=== PATIENT | female | born 1945 | race Caucasian/White ===

== ENCOUNTER 2022-08-06 10:55 | Inpatient (IN) | payer OTHER ==
[~2022-08-06] VITALS: Ht 162.6 cm; Wt 49.4 kg
[2022-08-06 11:05] VITALS: BP_SYST 123
[2022-08-06 12:09] LABS: ANION GAP 8 (5-15); BASOPHILS % (AUTO) 0.5 % (0.0-2.0); CALCIUM 9.2 mg/dL (8.4-11.0); CHLORIDE 106 mmol/L (98-107); CREATININE 1.63 mg/dL (0.55-1.30); EOSINOPHILS # (AUTO) 0.2 K/uL (0.0-0.4); EOSINOPHILS % (AUTO) 2.9 % (0.0-4.0); GLUCOSE 116 mg/dL (70-99); HEMATOCRIT 33.5 % (36-48); HEMOGLOBIN 11.1 g/dL (12.0-16.0); LYMPHOCYTES % (AUTO) 27.9 % (20.5-51.5); MEAN CORPUSCULAR HEMOGLOBIN 28 pg (27-31); MEAN CORPUSCULAR HGB CONC 33 % (32-36); MEAN CORPUSCULAR VOLUME 84 fL (79.0-98.0); MONOCYTES # (AUTO) 0.4 K/uL (0.0-1.0); MONOCYTES % (AUTO) 5.8 % (1.7-9.3); NEUTROPHILS # (AUTO) 4.6 K/uL (1.8-7.7); NEUTROPHILS % (AUTO) 62.9 % (40.0-70.0); PLATELET COUNT (AUTO) 278 K/uL (130-430); PROTHROMBIN TIME 9.9 SECS (9.5-12.5); RED BLOOD CELL COUNT(AUTO) 3.99 MIL/uL (4.2-6.2); RED CELL DISTRIBUTION WIDTH 15.8 % (9.0-15.0); UREA NITROGEN, BLOOD 42 mg/dL (8-21); WHITE BLOOD COUNT (AUTO) 7.3 K/uL (4.8-10.8)
[2022-08-06] MEDS ORDERED: NACL 0.9% 1,500 ML IV ONE (12:15)
[2022-08-06] MEDS ORDERED: cefTRIAXone 1 GM in LIDOCAINE 1%, 20 ML MDV 2.1 ML IM ONE (12:15)
[2022-08-06] MEDS ORDERED: cefTRIAXone 1 GM in D5W 50 ML IV ONE (12:15)
[2022-08-06 12:21] LABS: ALANINE AMINOTRANSFERASE 41 U/L (12-78); ALBUMIN 3.1 g/dL (3.4-4.8); ASPARTATE AMINOTRANSFERASE 17 U/L (10-37); TOTAL BILIRUBIN 0.3 mg/dL (0.0-1.0)
[2022-08-06] MEDS ORDERED: cefTRIAXone 1 GM VIAL ONE (13:00)
[2022-08-06 13:08] LABS: ACETAMINOPHEN < 1 ug/mL (1-30); ALCOHOL, BLOOD < 3 mg/dL (<10)
[2022-08-06 14:58] LABS: BILIRUBIN,URINE NEGATIVE (NEGATIVE); BLOOD, URINE NEGATIVE (NEGATIVE); COLOR,URINE YELLOW (YELLOW); GLUCOSE,URINE NEGATIVE (NEGATIVE); KETONES,URINE NEGATIVE (NEGATIVE); LEUKOCYTE ESTERASE ,URINE NEGATIVE (NEGATIVE); NITRITE, URINE NEGATIVE (NEGATIVE); PROTEIN URINE 2+ (NEGATIVE); UROBILINOGEN,URINE 0.2 (0.2-1.0)
[2022-08-06 15:01] LABS: CLARITY/URINE SLIGHTLY HAZY (CLEAR)
[2022-08-06 15:14] LABS: RBC,URINE NONE SEEN /HPF (0-3)
[2022-08-06 15:15] LABS: BACTERIA,URINE MODERATE /HPF (None Seen); HYALINE CASTS, URINE 0-10 /LPF (None Seen); MUCUS,URINE None Seen /LPF (None Seen)
[2022-08-06 15:20] LABS: BARBITURATE, URINE NEGATIVE (NEG <=200); BENZODIAZEPINE, URINE NEGATIVE (NEG <=150); CANNABINOID, URINE NEGATIVE (NEG <=50); COCAINE, URINE NEGATIVE (NEG <=150); METHAMPHETAMINES SCREEN,URINE NEGATIVE (NEG <=500); OPIATE, URINE NEGATIVE (NEG <=100); PHENCYCLIDINE SCREEN,URINE NEGATIVE (NEG <=25); UR TRICYCLIC ANTIDEPRESSANTS NEGATIVE (NEG <=300); URINE AMPHETAMINE NEGATIVE (NEG <=500); URINE METHADONE NEGATIVE (NEG <=200); URINE OXYCODONE SCREEN NEGATIVE (NEG <=100); URINE PROPOXYPHENE SCREEN NEGATIVE (NEG <=300)
[2022-08-06] MEDS ORDERED: HYDR-4039 PO (16:56)
[2022-08-06] MEDS ORDERED: METO25TA6 PO (16:56)
[2022-08-06] MEDS ORDERED: LIP10 PO (16:56)
[2022-08-06] MEDS ORDERED: LOSA50TA3 PO (16:56)
[2022-08-06] MEDS ORDERED: LEVO25TA7 PO (16:56)
[2022-08-06] MEDS ORDERED: DONE10TA44 PO (16:56)
[2022-08-06] MEDS ORDERED: MEMA10TA PO (16:56)
[2022-08-06] MEDS ORDERED: FINE10TA PO (16:56)
[2022-08-06] MEDS ORDERED: CYAN100010 PO (16:56)
[2022-08-06] MEDS ORDERED: INSU100V38 SQ (16:56)
[2022-08-06] MEDS ORDERED: INSNLG7030 SUBCUT (16:56)
[2022-08-06] MEDS ORDERED: cefTRIAXone 1 GM IVPB PREMIX 50 ML IV ONE (17:30)
[2022-08-06] MEDS ORDERED: HYDROcodone/ACETAMIN 10-325 MG TAB PO PRN (19:45)
[2022-08-06] MEDS ORDERED: ONDANSETRON HCL 4 MG/2 ML VIAL IVP PRN (19:45)
[2022-08-06] MEDS ORDERED: ACETAMINOPHEN 325 MG TABLET PO PRN ×2 (19:45→20:15)
[2022-08-06] MEDS ORDERED: HYDROcodone/ACETAMIN 5-325 MG TAB (NORCO/ VICODIN) PO PRN (19:45)
[2022-08-06] MEDS ORDERED: LORazepam 2 MG/ML VIAL IVP PRN (19:45)
[2022-08-06] MEDS ORDERED: NALOXONE HCL 0.4 MG/ML AMP (NARCAN) IVP PRN ×2 (19:45)
[2022-08-06] MEDS: INSULIN GLARGINE 100 UNITS/ML, 10 ML VIAL SUBCUT SCH (22:58)
[2022-08-07] MEDS: hydrALAZINE HCL 25 MG TABLET PO SCH ×5 (00:42→20:42)
[2022-08-07] MEDS: NORMAL SALINE 5 ML DISP.SYRIN IVF SCH ×4 (00:43→22:00)
[2022-08-07] MEDS: ATORVASTATIN 10 MG TABLET PO SCH ×2 (00:43→20:43)
[2022-08-07] MEDS: MEMANTINE HCL 5 MG TABLET PO SCH ×3 (00:43→20:43)
[2022-08-07] MEDS: DONEPEZIL HCL 5 MG TABLET (ARICEPT) PO SCH ×2 (00:43→20:41)
[2022-08-07] MEDS ORDERED: INSULIN NPH/REGULAR 70-30, 100 UNITS/ML, 3 ML VIAL ONE ×2 (06:16→12:22)
[2022-08-07] MEDS: INSULIN NPH/REGULAR 70-30, 100 UNITS/ML, 3 ML VIAL SUBCUT SCH ×3 (06:22→16:37)
[2022-08-07 06:54] LABS: CALCIUM 8.6 mg/dL (8.4-11.0); CHLORIDE 109 mmol/L (98-107); GLUCOSE 84 mg/dL (70-99); UREA NITROGEN, BLOOD 38 mg/dL (8-21)
[2022-08-07] MEDS ORDERED: INSULIN Aspart Prota/Aspar MIX 70-30, 100 UNITS/ML, 10 ML VIAL SUBCUT SCH (07:00)
[2022-08-07 07:04] LABS: BASOPHILS % (AUTO) 0.3 % (0.0-2.0); EOSINOPHILS # (AUTO) 0.1 K/uL (0.0-0.4); EOSINOPHILS % (AUTO) 1.7 % (0.0-4.0); HEMATOCRIT 31.1 % (36-48); HEMOGLOBIN 10.3 g/dL (12.0-16.0); LYMPHOCYTES # (AUTO) 2.9 K/uL (1.0-5.5); LYMPHOCYTES % (AUTO) 34.5 % (20.5-51.5); MEAN CORPUSCULAR HEMOGLOBIN 28 pg (27-31); MEAN CORPUSCULAR HGB CONC 33 % (32-36); MEAN CORPUSCULAR VOLUME 84 fL (79.0-98.0); MONOCYTES # (AUTO) 0.5 K/uL (0.0-1.0); MONOCYTES % (AUTO) 5.4 % (1.7-9.3); NEUTROPHILS # (AUTO) 4.9 K/uL (1.8-7.7); NEUTROPHILS % (AUTO) 58.1 % (40.0-70.0); PLATELET COUNT (AUTO) 272 K/uL (130-430); RED BLOOD CELL COUNT(AUTO) 3.71 MIL/uL (4.2-6.2); WHITE BLOOD COUNT (AUTO) 8.4 K/uL (4.8-10.8)
[2022-08-07 07:13] LABS: PHOSPHORUS 3.6 mg/dL (2.7-4.5)
[2022-08-07 07:43] LABS: ANION GAP 11 (5-15)
[2022-08-07] MEDS: SPIRONOLACTONE 25 MG TABLET (ALDACTONE) PO SCH (09:03)
[2022-08-07] MEDS: LEVOTHYROXINE SODIUM 0.025 MG TABLET PO SCH (09:03)
[2022-08-07] MEDS: LOSARTAN POTASSIUM 50 MG TABLET (COZAAR) PO SCH (09:06)
[2022-08-07] MEDS: METOPROLOL TARTRATE 25 MG TABLET PO SCH (09:07)
[2022-08-07] MEDS: CYANOCOBALAMIN (VITAMIN B-12) 1,000 MCG TABLET PO SCH (09:08)
[2022-08-07] MEDS ORDERED: KCL 40 mEq in 100 mL (PREMIX) 100 ML IV ONE (09:15)
[2022-08-07] MEDS: KCL 20 mEq in 100 mL (PREMIX) 100 ML IV SCH ×2 (09:52→12:23)
[2022-08-07 13:00] VITALS: BP_SYST 136
[2022-08-07 13:32] VITALS: BP_SYST 136
[2022-08-07] MEDS: INSULIN REGULAR, HUMAN 100 UNITS/ML, 3 ML VIAL (humuLIN R) SUBCUT PRN ×2 (16:38→21:01)
[2022-08-07] MEDS ORDERED: cefTRIAXone 1 GM IVPB PREMIX 50 ML IV SCH (17:00)
[2022-08-07 19:10] VITALS: BP_SYST 122
[2022-08-07] MEDS: INSULIN GLARGINE 100 UNITS/ML, 10 ML VIAL SUBCUT SCH (21:01)
[2022-08-08 00:28] VITALS: BP_SYST 137
[2022-08-08 04:00] VITALS: BP_SYST 121
[2022-08-08] MEDS: NORMAL SALINE 5 ML DISP.SYRIN IVF SCH ×3 (06:00→23:13)
[2022-08-08 07:00] LABS: BASOPHILS % (AUTO) 0.6 % (0.0-2.0); EOSINOPHILS # (AUTO) 0.2 K/uL (0.0-0.4); EOSINOPHILS % (AUTO) 2.1 % (0.0-4.0); HEMOGLOBIN 10.1 g/dL (12.0-16.0); LYMPHOCYTES # (AUTO) 2.9 K/uL (1.0-5.5); LYMPHOCYTES % (AUTO) 36.7 % (20.5-51.5); MEAN CORPUSCULAR HEMOGLOBIN 28 pg (27-31); MEAN CORPUSCULAR HGB CONC 33 % (32-36); MEAN CORPUSCULAR VOLUME 84 fL (79.0-98.0); MONOCYTES # (AUTO) 0.5 K/uL (0.0-1.0); NEUTROPHILS # (AUTO) 4.3 K/uL (1.8-7.7); NEUTROPHILS % (AUTO) 54.6 % (40.0-70.0); PLATELET COUNT (AUTO) 274 K/uL (130-430); RED BLOOD CELL COUNT(AUTO) 3.68 MIL/uL (4.2-6.2); RED CELL DISTRIBUTION WIDTH 16.2 % (9.0-15.0); WHITE BLOOD COUNT (AUTO) 7.9 K/uL (4.8-10.8)
[2022-08-08] MEDS: LEVOTHYROXINE SODIUM 0.025 MG TABLET PO SCH (07:00)
[2022-08-08] MEDS: INSULIN NPH/REGULAR 70-30, 100 UNITS/ML, 3 ML VIAL SUBCUT SCH ×3 (07:00→17:00)
[2022-08-08 07:35] LABS: ALANINE AMINOTRANSFERASE 26 U/L (12-78); ALBUMIN 2.6 g/dL (3.4-4.8); ANION GAP 7 (5-15); ASPARTATE AMINOTRANSFERASE 13 U/L (10-37); CALCIUM 8.5 mg/dL (8.4-11.0); CHLORIDE 112 mmol/L (98-107); CREATININE 1.44 mg/dL (0.55-1.30); GLUCOSE 64 mg/dL (70-99); PHOSPHORUS 3.3 mg/dL (2.7-4.5); TOTAL BILIRUBIN 0.2 mg/dL (0.0-1.0); UREA NITROGEN, BLOOD 35 mg/dL (8-21)
[2022-08-08 07:37] LABS: C-REACTIVE PROTEIN QUANT < 0.2 mg/dL (0-0.5)
[2022-08-08] MEDS: SPIRONOLACTONE 25 MG TABLET (ALDACTONE) PO SCH (08:41)
[2022-08-08] MEDS: MEMANTINE HCL 5 MG TABLET PO SCH ×2 (08:41→23:10)
[2022-08-08] MEDS: LOSARTAN POTASSIUM 50 MG TABLET (COZAAR) PO SCH (08:41)
[2022-08-08] MEDS: CYANOCOBALAMIN (VITAMIN B-12) 1,000 MCG TABLET PO SCH (08:41)
[2022-08-08] MEDS: hydrALAZINE HCL 25 MG TABLET PO SCH ×3 (08:42→23:10)
[2022-08-08] MEDS: METOPROLOL TARTRATE 25 MG TABLET PO SCH (08:43)
[2022-08-08] MEDS: D5/0.45 NS 1,000 ML IV SCH ×2 (10:15→23:00)
[2022-08-08 10:32] LABS: ERYTHROCYTE SEDIMENTATION RATE 39 MM/HR (0-20)
[2022-08-08 11:28] VITALS: BP_SYST 126
[2022-08-08] MEDS: INSULIN REGULAR, HUMAN 100 UNITS/ML, 3 ML VIAL (humuLIN R) SUBCUT PRN ×2 (11:52→17:36)
[2022-08-08 15:31] VITALS: BP_SYST 112
[2022-08-08 17:38] VITALS: BP_SYST 124; BP_SYST 128; BP_SYST 130
[2022-08-08] MEDS: DONEPEZIL HCL 5 MG TABLET (ARICEPT) PO SCH (23:09)
[2022-08-08] MEDS: ATORVASTATIN 10 MG TABLET PO SCH (23:09)
[2022-08-08] MEDS: INSULIN GLARGINE 100 UNITS/ML, 10 ML VIAL SUBCUT SCH (23:15)
[2022-08-09] MEDS: D5/0.45 NS 1,000 ML IV SCH ×2 (06:06→20:00)
[2022-08-09] MEDS: NORMAL SALINE 5 ML DISP.SYRIN IVF SCH ×3 (06:06→21:14)
[2022-08-09] MEDS: LEVOTHYROXINE SODIUM 0.025 MG TABLET PO SCH (06:21)
[2022-08-09] MEDS: INSULIN NPH/REGULAR 70-30, 100 UNITS/ML, 3 ML VIAL SUBCUT SCH ×3 (06:25→17:07)
[2022-08-09 08:00] VITALS: BP_SYST 125
[2022-08-09] MEDS: MEMANTINE HCL 5 MG TABLET PO SCH ×2 (08:30→20:24)
[2022-08-09] MEDS: LOSARTAN POTASSIUM 50 MG TABLET (COZAAR) PO SCH (08:30)
[2022-08-09] MEDS: hydrALAZINE HCL 25 MG TABLET PO SCH ×3 (08:31→20:24)
[2022-08-09] MEDS: CYANOCOBALAMIN (VITAMIN B-12) 1,000 MCG TABLET PO SCH (08:31)
[2022-08-09] MEDS: METOPROLOL TARTRATE 25 MG TABLET PO SCH (08:31)
[2022-08-09] MEDS: SPIRONOLACTONE 25 MG TABLET (ALDACTONE) PO SCH (08:32)
[2022-08-09 09:50] LABS: ANION GAP 9 (5-15); CHLORIDE 107 mmol/L (98-107); CREATININE 1.33 mg/dL (0.55-1.30); GLUCOSE 130 mg/dL (70-99); PHOSPHORUS 3.9 mg/dL (2.7-4.5); UREA NITROGEN, BLOOD 31 mg/dL (8-21)
[2022-08-09 09:53] LABS: C-REACTIVE PROTEIN QUANT < 0.2 mg/dL (0-0.5)
[2022-08-09 10:21] LABS: RED BLOOD CELL COUNT(AUTO) 4.07 MIL/uL (4.2-6.2); WHITE BLOOD COUNT (AUTO) 8.8 K/uL (4.8-10.8)
[2022-08-09 10:22] LABS: BASOPHILS % (AUTO) 0.4 % (0.0-2.0); EOSINOPHILS # (AUTO) 0.2 K/uL (0.0-0.4); HEMATOCRIT 34.4 % (36-48); HEMOGLOBIN 11.1 g/dL (12.0-16.0); LYMPHOCYTES # (AUTO) 2.9 K/uL (1.0-5.5); LYMPHOCYTES % (AUTO) 32.8 % (20.5-51.5); MEAN CORPUSCULAR HEMOGLOBIN 27 pg (27-31); MEAN CORPUSCULAR HGB CONC 32 % (32-36); MEAN CORPUSCULAR VOLUME 85 fL (79.0-98.0); MONOCYTES # (AUTO) 0.4 K/uL (0.0-1.0); MONOCYTES % (AUTO) 4.3 % (1.7-9.3); NEUTROPHILS # (AUTO) 5.3 K/uL (1.8-7.7); NEUTROPHILS % (AUTO) 60.5 % (40.0-70.0); PLATELET COUNT (AUTO) 301 K/uL (130-430); RED CELL DISTRIBUTION WIDTH 16.1 % (9.0-15.0)
[2022-08-09 10:57] LABS: ERYTHROCYTE SEDIMENTATION RATE 53 MM/HR (0-20)
[2022-08-09] MEDS ORDERED: ERTA1VIA IJ (11:37)
[2022-08-09 11:44] VITALS: BP_SYST 151
[2022-08-09] MEDS: INSULIN REGULAR, HUMAN 100 UNITS/ML, 3 ML VIAL (humuLIN R) SUBCUT PRN (12:18)
[2022-08-09 15:16] VITALS: BP_SYST 149
[2022-08-09] MEDS: ERTAPENEM SODIUM 0.5 GM in NS 50 ML IV SCH (17:13)
[2022-08-09 20:00] VITALS: BP_SYST 160
[2022-08-09] MEDS: DONEPEZIL HCL 5 MG TABLET (ARICEPT) PO SCH (20:23)
[2022-08-09] MEDS: ATORVASTATIN 10 MG TABLET PO SCH (20:24)
[2022-08-09] MEDS: INSULIN GLARGINE 100 UNITS/ML, 10 ML VIAL SUBCUT SCH (20:25)
[2022-08-10 00:42] VITALS: BP_SYST 151
[2022-08-10] MEDS: D5/0.45 NS 1,000 ML IV SCH ×3 (02:20→18:28)
[2022-08-10] MEDS: NORMAL SALINE 5 ML DISP.SYRIN IVF SCH ×3 (06:03→21:06)
[2022-08-10] MEDS: LEVOTHYROXINE SODIUM 0.025 MG TABLET PO SCH (06:03)
[2022-08-10] MEDS: INSULIN NPH/REGULAR 70-30, 100 UNITS/ML, 3 ML VIAL SUBCUT SCH ×3 (06:17→16:51)
[2022-08-10 07:42] LABS: BASOPHILS # (AUTO) 0.1 K/uL (0.0-0.2); BASOPHILS % (AUTO) 0.7 % (0.0-2.0); EOSINOPHILS # (AUTO) 0.2 K/uL (0.0-0.4); HEMATOCRIT 31.8 % (36-48); HEMOGLOBIN 10.4 g/dL (12.0-16.0); LYMPHOCYTES # (AUTO) 3.4 K/uL (1.0-5.5); LYMPHOCYTES % (AUTO) 38.9 % (20.5-51.5); MEAN CORPUSCULAR HEMOGLOBIN 27 pg (27-31); MEAN CORPUSCULAR HGB CONC 33 % (32-36); MONOCYTES # (AUTO) 0.5 K/uL (0.0-1.0); MONOCYTES % (AUTO) 5.9 % (1.7-9.3); NEUTROPHILS # (AUTO) 4.6 K/uL (1.8-7.7); NEUTROPHILS % (AUTO) 52.5 % (40.0-70.0); PLATELET COUNT (AUTO) 296 K/uL (130-430); RED BLOOD CELL COUNT(AUTO) 3.81 MIL/uL (4.2-6.2); RED CELL DISTRIBUTION WIDTH 16.1 % (9.0-15.0); WHITE BLOOD COUNT (AUTO) 8.8 K/uL (4.8-10.8)
[2022-08-10 07:50] LABS: ALANINE AMINOTRANSFERASE 27 U/L (12-78); ALBUMIN 2.4 g/dL (3.4-4.8); ANION GAP 8 (5-15); ASPARTATE AMINOTRANSFERASE 14 U/L (10-37); CALCIUM 8.5 mg/dL (8.4-11.0); CHLORIDE 110 mmol/L (98-107); CREATININE 1.48 mg/dL (0.55-1.30); GLUCOSE 121 mg/dL (70-99); PHOSPHORUS 3.9 mg/dL (2.7-4.5); TOTAL BILIRUBIN 0.2 mg/dL (0.0-1.0); UREA NITROGEN, BLOOD 32 mg/dL (8-21)
[2022-08-10 07:51] LABS: C-REACTIVE PROTEIN QUANT < 0.2 mg/dL (0-0.5)
[2022-08-10 07:58] VITALS: BP_SYST 157
[2022-08-10 08:32] LABS: MEAN CORPUSCULAR VOLUME 83 fL (79.0-98.0)
[2022-08-10] MEDS: CYANOCOBALAMIN (VITAMIN B-12) 1,000 MCG TABLET PO SCH (08:47)
[2022-08-10] MEDS: LOSARTAN POTASSIUM 50 MG TABLET (COZAAR) PO SCH (08:47)
[2022-08-10] MEDS: METOPROLOL TARTRATE 25 MG TABLET PO SCH (08:49)
[2022-08-10] MEDS: SPIRONOLACTONE 25 MG TABLET (ALDACTONE) PO SCH (08:49)
[2022-08-10] MEDS: hydrALAZINE HCL 25 MG TABLET PO SCH ×3 (08:49→20:44)
[2022-08-10] MEDS: MEMANTINE HCL 5 MG TABLET PO SCH ×2 (08:52→20:44)
[2022-08-10 09:30] LABS: ERYTHROCYTE SEDIMENTATION RATE 38 MM/HR (0-20)
[2022-08-10 11:44] VITALS: BP_SYST 147
[2022-08-10] MEDS: INSULIN REGULAR, HUMAN 100 UNITS/ML, 3 ML VIAL (humuLIN R) SUBCUT PRN ×2 (12:16→16:54)
[2022-08-10 15:43] VITALS: BP_SYST 96
[2022-08-10 16:30] VITALS: BP_SYST 110
[2022-08-10] MEDS: ERTAPENEM SODIUM 0.5 GM in NS 50 ML IV SCH (17:01)
[2022-08-10 20:00] VITALS: BP_SYST 115
[2022-08-10] MEDS: DONEPEZIL HCL 5 MG TABLET (ARICEPT) PO SCH (20:43)
[2022-08-10] MEDS: ATORVASTATIN 10 MG TABLET PO SCH (20:44)
[2022-08-10] MEDS: INSULIN GLARGINE 100 UNITS/ML, 10 ML VIAL SUBCUT SCH (20:52)
[2022-08-11 01:26] VITALS: BP_SYST 128
[2022-08-11] MEDS: NORMAL SALINE 5 ML DISP.SYRIN IVF SCH ×3 (06:02→22:53)
[2022-08-11] MEDS: INSULIN NPH/REGULAR 70-30, 100 UNITS/ML, 3 ML VIAL SUBCUT SCH ×3 (06:13→17:34)
[2022-08-11] MEDS: LEVOTHYROXINE SODIUM 0.025 MG TABLET PO SCH (06:14)
[2022-08-11 07:19] LABS: BASOPHILS # (AUTO) 0.1 K/uL (0.0-0.2); BASOPHILS % (AUTO) 0.5 % (0.0-2.0); EOSINOPHILS # (AUTO) 0.2 K/uL (0.0-0.4); EOSINOPHILS % (AUTO) 2.1 % (0.0-4.0); HEMOGLOBIN 10.5 g/dL (12.0-16.0); LYMPHOCYTES # (AUTO) 3.3 K/uL (1.0-5.5); LYMPHOCYTES % (AUTO) 34.8 % (20.5-51.5); MEAN CORPUSCULAR HEMOGLOBIN 28 pg (27-31); MEAN CORPUSCULAR HGB CONC 33 % (32-36); MEAN CORPUSCULAR VOLUME 84 fL (79.0-98.0); MONOCYTES # (AUTO) 0.5 K/uL (0.0-1.0); MONOCYTES % (AUTO) 5.1 % (1.7-9.3); NEUTROPHILS # (AUTO) 5.5 K/uL (1.8-7.7); NEUTROPHILS % (AUTO) 57.5 % (40.0-70.0); PLATELET COUNT (AUTO) 280 K/uL (130-430); RED BLOOD CELL COUNT(AUTO) 3.79 MIL/uL (4.2-6.2); RED CELL DISTRIBUTION WIDTH 15.7 % (9.0-15.0); WHITE BLOOD COUNT (AUTO) 9.5 K/uL (4.8-10.8)
[2022-08-11 08:36] LABS: ALANINE AMINOTRANSFERASE 32 U/L (12-78); ALBUMIN 2.4 g/dL (3.4-4.8); ANION GAP 7 (5-15); ASPARTATE AMINOTRANSFERASE 17 U/L (10-37); CALCIUM 8.3 mg/dL (8.4-11.0); CHLORIDE 111 mmol/L (98-107); CREATININE 1.99 mg/dL (0.55-1.30); GLUCOSE 132 mg/dL (70-99); PHOSPHORUS 4.4 mg/dL (2.7-4.5); TOTAL BILIRUBIN 0.3 mg/dL (0.0-1.0); UREA NITROGEN, BLOOD 45 mg/dL (8-21)
[2022-08-11] MEDS: METOPROLOL TARTRATE 25 MG TABLET PO SCH (08:44)
[2022-08-11] MEDS: CYANOCOBALAMIN (VITAMIN B-12) 1,000 MCG TABLET PO SCH (08:44)
[2022-08-11] MEDS: SPIRONOLACTONE 25 MG TABLET (ALDACTONE) PO SCH (08:44)
[2022-08-11] MEDS: MEMANTINE HCL 5 MG TABLET PO SCH ×2 (08:45→22:53)
[2022-08-11] MEDS: LOSARTAN POTASSIUM 50 MG TABLET (COZAAR) PO SCH (08:45)
[2022-08-11] MEDS: hydrALAZINE HCL 25 MG TABLET PO SCH ×3 (08:46→22:53)
[2022-08-11 09:08] LABS: C-REACTIVE PROTEIN QUANT < 0.2 mg/dL (0-0.5)
[2022-08-11 10:58] VITALS: BP_SYST 125
[2022-08-11 12:00] VITALS: BP_SYST 118
[2022-08-11 12:48] LABS: ERYTHROCYTE SEDIMENTATION RATE 30 MM/HR (0-20)
[2022-08-11 12:56] VITALS: BP_SYST 118; BP_SYST 122
[2022-08-11] MEDS: D5/0.45 NS 1,000 ML IV SCH (15:51)
[2022-08-11] MEDS: ERTAPENEM SODIUM 0.5 GM in NS 50 ML IV SCH (17:27)
[2022-08-11] MEDS: INSULIN REGULAR, HUMAN 100 UNITS/ML, 3 ML VIAL (humuLIN R) SUBCUT PRN (17:39)
[2022-08-11 17:45] VITALS: BP_SYST 130
[2022-08-11 20:00] VITALS: BP_SYST 152
[2022-08-11] MEDS: ATORVASTATIN 10 MG TABLET PO SCH (22:52)
[2022-08-11] MEDS: DONEPEZIL HCL 5 MG TABLET (ARICEPT) PO SCH (22:52)
[2022-08-11] MEDS: INSULIN GLARGINE 100 UNITS/ML, 10 ML VIAL SUBCUT SCH (23:00)
[2022-08-12] VITALS: BP_SYST 136
[2022-08-12 04:00] VITALS: BP_SYST 130
[2022-08-12] MEDS: NORMAL SALINE 5 ML DISP.SYRIN IVF SCH ×3 (06:34→21:29)
[2022-08-12] MEDS: LEVOTHYROXINE SODIUM 0.025 MG TABLET PO SCH (06:34)
[2022-08-12] MEDS: INSULIN NPH/REGULAR 70-30, 100 UNITS/ML, 3 ML VIAL SUBCUT SCH ×3 (06:38→16:40)
[2022-08-12 07:01] LABS: BASOPHILS # (AUTO) 0.1 K/uL (0.0-0.2); BASOPHILS % (AUTO) 0.6 % (0.0-2.0); EOSINOPHILS # (AUTO) 0.2 K/uL (0.0-0.4); EOSINOPHILS % (AUTO) 1.9 % (0.0-4.0); HEMATOCRIT 29.8 % (36-48); HEMOGLOBIN 9.7 g/dL (12.0-16.0); LYMPHOCYTES # (AUTO) 3.6 K/uL (1.0-5.5); LYMPHOCYTES % (AUTO) 33.8 % (20.5-51.5); MEAN CORPUSCULAR HEMOGLOBIN 28 pg (27-31); MEAN CORPUSCULAR HGB CONC 33 % (32-36); MEAN CORPUSCULAR VOLUME 85 fL (79.0-98.0); MONOCYTES # (AUTO) 0.6 K/uL (0.0-1.0); MONOCYTES % (AUTO) 5.5 % (1.7-9.3); NEUTROPHILS # (AUTO) 6.3 K/uL (1.8-7.7); NEUTROPHILS % (AUTO) 58.2 % (40.0-70.0); PLATELET COUNT (AUTO) 257 K/uL (130-430); RED BLOOD CELL COUNT(AUTO) 3.52 MIL/uL (4.2-6.2); RED CELL DISTRIBUTION WIDTH 15.7 % (9.0-15.0); WHITE BLOOD COUNT (AUTO) 10.8 K/uL (4.8-10.8)
[2022-08-12 07:09] LABS: ANION GAP 9 (5-15); CALCIUM 8.1 mg/dL (8.4-11.0); CHLORIDE 110 mmol/L (98-107); CREATININE 1.65 mg/dL (0.55-1.30); GLUCOSE 110 mg/dL (70-99); PHOSPHORUS 4.3 mg/dL (2.7-4.5); UREA NITROGEN, BLOOD 45 mg/dL (8-21)
[2022-08-12 07:28] LABS: C-REACTIVE PROTEIN QUANT < 0.2 mg/dL (0-0.5)
[2022-08-12 08:00] VITALS: BP_SYST 154
[2022-08-12] MEDS: CYANOCOBALAMIN (VITAMIN B-12) 1,000 MCG TABLET PO SCH (08:34)
[2022-08-12] MEDS: METOPROLOL TARTRATE 25 MG TABLET PO SCH (08:35)
[2022-08-12] MEDS: MEMANTINE HCL 5 MG TABLET PO SCH ×2 (08:35→21:24)
[2022-08-12] MEDS: LOSARTAN POTASSIUM 50 MG TABLET (COZAAR) PO SCH (08:35)
[2022-08-12] MEDS: SPIRONOLACTONE 25 MG TABLET (ALDACTONE) PO SCH (08:36)
[2022-08-12] MEDS: hydrALAZINE HCL 25 MG TABLET PO SCH ×3 (08:36→21:25)
[2022-08-12 10:33] LABS: ERYTHROCYTE SEDIMENTATION RATE 34 MM/HR (0-20)
[2022-08-12 11:29] VITALS: BP_SYST 104
[2022-08-12] MEDS: INSULIN REGULAR, HUMAN 100 UNITS/ML, 3 ML VIAL (humuLIN R) SUBCUT PRN (16:39)
[2022-08-12 17:30] VITALS: BP_SYST 140
[2022-08-12] MEDS: ERTAPENEM SODIUM 0.5 GM in NS 50 ML IV SCH (17:46)
[2022-08-12 20:00] VITALS: BP_SYST 142
[2022-08-12] MEDS: ATORVASTATIN 10 MG TABLET PO SCH (21:25)
[2022-08-12] MEDS: DONEPEZIL HCL 5 MG TABLET (ARICEPT) PO SCH (21:25)
[2022-08-12] MEDS: INSULIN GLARGINE 100 UNITS/ML, 10 ML VIAL SUBCUT SCH (21:31)
[2022-08-13] VITALS: BP_SYST 159
[2022-08-13] MEDS: D5/0.45 NS 1,000 ML IV SCH (03:13)
[2022-08-13 04:00] VITALS: BP_SYST 154
[2022-08-13] MEDS: LEVOTHYROXINE SODIUM 0.025 MG TABLET PO SCH (06:21)
[2022-08-13] MEDS: NORMAL SALINE 5 ML DISP.SYRIN IVF SCH ×2 (06:22→15:09)
[2022-08-13] MEDS: INSULIN NPH/REGULAR 70-30, 100 UNITS/ML, 3 ML VIAL SUBCUT SCH ×3 (06:28→17:26)
[2022-08-13 06:44] LABS: BASOPHILS # (AUTO) 0.1 K/uL (0.0-0.2); BASOPHILS % (AUTO) 0.6 % (0.0-2.0); EOSINOPHILS # (AUTO) 0.2 K/uL (0.0-0.4); EOSINOPHILS % (AUTO) 2.2 % (0.0-4.0); HEMATOCRIT 31.3 % (36-48); HEMOGLOBIN 10.5 g/dL (12.0-16.0); LYMPHOCYTES % (AUTO) 27.4 % (20.5-51.5); MEAN CORPUSCULAR HEMOGLOBIN 29 pg (27-31); MEAN CORPUSCULAR HGB CONC 34 % (32-36); MEAN CORPUSCULAR VOLUME 85 fL (79.0-98.0); MONOCYTES # (AUTO) 0.6 K/uL (0.0-1.0); MONOCYTES % (AUTO) 5.2 % (1.7-9.3); NEUTROPHILS # (AUTO) 7.1 K/uL (1.8-7.7); NEUTROPHILS % (AUTO) 64.6 % (40.0-70.0); PLATELET COUNT (AUTO) 247 K/uL (130-430); RED CELL DISTRIBUTION WIDTH 16.1 % (9.0-15.0)
[2022-08-13 06:57] LABS: ANION GAP 7 (5-15); C-REACTIVE PROTEIN QUANT 0.3 mg/dL (0-0.5); CALCIUM 8.4 mg/dL (8.4-11.0); CHLORIDE 112 mmol/L (98-107); CREATININE 1.44 mg/dL (0.55-1.30); GLUCOSE 108 mg/dL (70-99); PHOSPHORUS 4.3 mg/dL (2.7-4.5); UREA NITROGEN, BLOOD 29 mg/dL (8-21)
[2022-08-13 08:30] VITALS: BP_SYST 150
[2022-08-13 08:30] LABS: ERYTHROCYTE SEDIMENTATION RATE 34 MM/HR (0-20)
[2022-08-13] MEDS: MEMANTINE HCL 5 MG TABLET PO SCH (09:48)
[2022-08-13] MEDS: hydrALAZINE HCL 25 MG TABLET PO SCH ×3 (09:48→15:09)
[2022-08-13] MEDS: LOSARTAN POTASSIUM 50 MG TABLET (COZAAR) PO SCH (09:48)
[2022-08-13] MEDS: SPIRONOLACTONE 25 MG TABLET (ALDACTONE) PO SCH (09:49)
[2022-08-13] MEDS: METOPROLOL TARTRATE 25 MG TABLET PO SCH (09:49)
[2022-08-13] MEDS: CYANOCOBALAMIN (VITAMIN B-12) 1,000 MCG TABLET PO SCH (09:50)
[2022-08-13] MEDS: INSULIN REGULAR, HUMAN 100 UNITS/ML, 3 ML VIAL (humuLIN R) SUBCUT PRN (11:23)
[2022-08-13 11:45] VITALS: BP_SYST 151
[2022-08-13 15:50] VITALS: BP_SYST 137
[2022-08-13] MEDS ORDERED: FLUCONAZOLE 100 mg/ NS 50 ML IV ONE (17:15)
[2022-08-13] MEDS: ERTAPENEM SODIUM 0.5 GM in NS 50 ML IV SCH (17:27)
[2022-08-13 20:27] VITALS: BP_SYST 155
== END 2022-08-13 21:00 | disposition home health service (06) | DRG 871 ==
LOC: SED 10:55 → STU 17:09
PROVIDERS: ADMIT Preventive Medicine Preventive Medicine/Occupational Environmental Medicine; ATTEND Preventive Medicine Preventive Medicine/Occupational Environmental Medicine
PROC: 4A00X4Z Measurement of Central Nervous Electrical Activity, External Approach (ICD-10-PCS; principal; 2022-08-08)
PROC: 05HY33Z Insertion of Infusion Device into Upper Vein, Percutaneous Approach (ICD-10-PCS; 2022-08-09)
PROC: B54MZZA Ultrasonography of Right Upper Extremity Veins, Guidance (ICD-10-PCS; 2022-08-09)
DX: A41.9 Sepsis, unspecified organism (principal); E43 Unspecified severe protein-calorie malnutrition; N17.0 Acute kidney failure with tubular necrosis; G93.41 Metabolic encephalopathy; N39.0 Urinary tract infection, site not specified; E87.20 Acidosis, unspecified; E87.0 Hyperosmolality and hypernatremia; G40.209 Localization-related (focal) (partial) symptomatic epilepsy and epileptic syndromes with complex partial seizures, not intractable, without status epilepticus; Z68.1 Body mass index [BMI] 19.9 or less, adult; E83.51 Hypocalcemia; F03.90 Unspecified dementia, unspecified severity, without behavioral disturbance, psychotic disturbance, mood disturbance, and anxiety; E11.65 Type 2 diabetes mellitus with hyperglycemia; E87.6 Hypokalemia; E78.5 Hyperlipidemia, unspecified; E03.9 Hypothyroidism, unspecified; E78.00 Pure hypercholesterolemia, unspecified; E83.41 Hypermagnesemia; E83.52 Hypercalcemia; E88.09 Other disorders of plasma-protein metabolism, not elsewhere classified; D63.1 Anemia in chronic kidney disease; Z20.822 Contact with and (suspected) exposure to COVID-19; B96.20 Unspecified Escherichia coli [E. coli] as the cause of diseases classified elsewhere; N18.9 Chronic kidney disease, unspecified; I12.9 Hypertensive chronic kidney disease with stage 1 through stage 4 chronic kidney disease, or unspecified chronic kidney disease; E11.22 Type 2 diabetes mellitus with diabetic chronic kidney disease; Z86.73 Personal history of transient ischemic attack (TIA), and cerebral infarction without residual deficits; Z82.0 Family history of epilepsy and other diseases of the nervous system; Z79.4 Long term (current) use of insulin; Z79.899 Other long term (current) drug therapy
CPT/HCPCS: 36415; 70450-TC; 71045; 72125-TC; 76376; 80048; 80053; 80307; 81000; 82550; 82962; 83605; 83735; 83880; 84100; 84484; 85025; 85610-TC; 85651-TC; 85730-TC; 86140; 87040; 87086; 93005; 93306; 93880; 95816; 96365; 96366; 96372; 97112-GP; 97116-GP; 97161-GP; 97530-GP; 99285; C1751; G0378; G0480; G0481; G0482; J0696; J1335; J1450; J1815; J3480; J7040; J7060